=== PATIENT | male | born 2000 | race Hispanic/Latino ===

== ENCOUNTER 2021-02-08 12:22 | Emergency (ER) | payer BC ==
[2021-02-08 13:36] VITALS: BP 118/63
== END 2021-02-08 13:36 | disposition home or self-care (01) | DRG 563 ==
LOC: ED 12:22
PROC: 2W3CX1Z Immobilization of Right Lower Arm using Splint (ICD-10-PCS; principal; 2021-02-08)
DX: S52.124A Nondisplaced fracture of head of right radius, initial encounter for closed fracture (principal); V18.0XXA Pedal cycle driver injured in noncollision transport accident in nontraffic accident, initial encounter; Y93.55 Activity, bike riding; Y92.410 Unspecified street and highway as the place of occurrence of the external cause

== ENCOUNTER 2024-05-08 13:12 | Emergency (ER) | payer BC ==
[2024-05-08] VITALS (12 sets, daily range): BP systolic 101–129; BP diastolic 55–75
[~2024-05-08] VITALS: Ht 177.8 cm; Wt 86.2 kg
[2024-05-08] MEDS ORDERED: SODIUM CHLORIDE 0.9% 1,000 ML IV ONE (13:15)
[2024-05-08] MEDS ORDERED: ONDANSETRON HCl 4 MG/2 ML SDV IV ONE (13:15)
[2024-05-08] MEDS ORDERED: DICYCLOMINE HCL 20 MG/2 ML VIAL IM ONE (13:30)
[2024-05-08 13:58] LABS: BASO% 0.3 % (0-3); HEMATOCRIT 43.8 % (39.0-50.0); IMMATURE GRANULOCYTES 0.3 % (0.0-5.0); LYMPH% 37.8 % (15-41); MEAN CELL VOLUME 88.1 fL CALC (80.0-100.0); MEAN CORPUSCULAR HGB 30.4 pG CALC (26.0-32.0); MEAN CORPUSCULAR HGB CONC 34.5 g/dL CAL (32.0-36.0); MONO% 14.2 % (2-13); NEUT# 1.6 thou/uL (1.82-7.42); NEUT% 45.4 % (42-76); RED BLOOD COUNT 4.97 mill/uL (4.70-6.10); RED CELL DISTRI WIDTH 12.1 % (11.5-15.5)
[2024-05-08 13:59] LABS: HEMOGLOBIN 15.1 g/dl (14.0-18.0)
[2024-05-08 14:38] LABS: ALBUMIN 4.1 g/dL (3.2-5.0); CREATININE 1.2 mg/dL (0.7-1.3); TOTAL PROTEIN 7.5 g/dL (6.3-8.2)
[2024-05-08 14:40] LABS: BILIRUBIN, TOTAL 1.3 mg/dL (0.2-1.3); POTASSIUM 3.6 mmol/l (3.5-5.1)
[2024-05-08 15:19] LABS: URINE BLOOD DIPSTICK Negative (NEGATIVE); URINE GLUCOSE - DIPSTICK Negative (NEGATIVE); URINE KETONE 80 mg/dL (NEGATIVE); URINE LEUK ESTERASE Negative (NEGATIVE); URINE NITRITE - DIPSTICK Negative (Negative); URINE PH 6.5 (4.5-8.0); URINE PROTEIN - DIPSTICK Negative (NEG-TRACE); URINE SPECIFIC GRAVITY >=1.030; URINE UROBILINOGEN - DIPSTICK 0.2 E.U./dL (0.2)
[2024-05-08 15:25] LABS: URINE COLOR Yellow
[2024-05-08] MEDS ORDERED: DICYCLOMINE HYD10 MG PO (16:39)
[2024-05-08] MEDS ORDERED: ONDANSETRON4 MG PO (16:39)
== END 2024-05-08 16:55 | disposition home or self-care (01) | DRG 392 ==
LOC: ED 13:12
PROVIDERS: Family Medicine
DX: R10.31 Right lower quadrant pain (principal); R10.32 Left lower quadrant pain; R11.2 Nausea with vomiting, unspecified; R19.7 Diarrhea, unspecified
CPT/HCPCS: Q9967